=== PATIENT | female | born 1950 | race American Indian/Alaskan Native ===

== ENCOUNTER 2020-12-12 20:55 | Inpatient (IN) ==
[2020-12-12] MEDS ORDERED: ACETAMINOPHEN 1,000 MG/100 ML BAG IV ONE (21:20)
[2020-12-12] MEDS ORDERED: ONDANSETRON 4 MG/2 ML VIAL IV ONE (21:20)
[2020-12-12] MEDS ORDERED: 0.9 % SODIUM CHLORIDE 1,000 ML IV ONE (21:20)
[2020-12-12 22:23] LABS: Appearance,Urine HAZY (Clear); Bilirubin,Urine Negative (Negative); Color,Urine YELLOW; Culture Indicated,Urine No; Glucose,Urine (UA) Negative (Negative); Ketones,Urine Negative (Negative); Leukocyte Esterase,Urine Negative /ug (Negative); Nitrate,Urine Negative (Negative); Protein,Urine Negative (Negative); Specific Gravity,Urine 1.011 (1.000-1.035); Urine Blood Negative (Negative); Urobilinogen,Urine Negative
[2020-12-12 22:23] LABS: Basophils # (Auto) 0.04 K/mcL (0.00-0.20); Basophils % (Auto) 0.3 % (0.0-2.0); Eosinophils # (Auto) 0.16 K/mcL (0.00-0.70); Eosinophils % (Auto) 1.3 % (0.0-7.0); Hemoglobin 11.8 g/dL (12.0-15.0); Lymphocytes # (Auto) 2.94 K/mcL (1.50-4.80); Lymphocytes % (Auto) 24.5 % (15.0-49.0); Mean Cell Volume 92.3 fL (80.0-100.0); Mean Corpuscular HGB Conc 33.7 g/dL (31.0-36.0); Mean Platelet Volume 9.2 fL (7.4-10.4); Monocytes # (Auto) 1.81 K/mcL (0.10-0.90); Monocytes % (Auto) 15.1 % (1.0-12.0); Neutrophils % (Auto) 58.8 % (38.0-78.0); Platelet Count 268 K/mcL (140-440); RBC 3.79 M/mcL (4.00-5.20); Red Cell Distribution Width 14.4 % (11.5-14.5)
[2020-12-12 22:34] LABS: ALT/SGPT 11 U/L (<40); AST/SGOT 24 U/L (<32); Albumin/Globulin Ratio 1.5 (1.0-2.3); Alkaline Phosphatase 58 U/L (39-117); Bilirubin,Total 0.2 mg/dL (0.1-1.0); Blood Urea Nitrogen 38 mg/dL (8-23); Calcium 8.6 mg/dL (8.6-10.4); Carbon Dioxide 23 mmol/L (22-30); Chloride 88 mmol/L (96-108); Globulin 2.6 gm/dL (2.2-3.7); Glomerular Filtration Rate 21; Glucose 102 mg/dL (70-105)
--- NOTE | 2020-12-12 22:59 | Emergency Department Note ---
HPI General Chief complaint: Weakness Stated complaint: Weakness, Aches and Pains Time Seen by Provider: 12/12/20 21:11 Source: patient Mode of arrival: ambulatory Limitations: no limitations History of Present Illness HPI Narrative: Narrative: Patient is a 70-year-old female who presented with chief complaint of not feeling well. Patient states over the past several days she been having slowly worsening body aches, fatigue, and weakness. She admits to not be eating or drinking much recently. She otherwise denies no significant symptoms such as fever, headache, cough, shortness of breath, chest pain, nausea , vomiting, abdominal pain, changes in bowel movements. She has noted some decreased urinary output. Related Data Home Medications Medication Instructions Recorded Confirmed amlodipine 5 mg tablet 5 mg PO QDAY 11/30/17 12/12/20 citalopram 10 mg tablet 10 mg PO QDAY 11/30/17 12/12/20 gabapentin 300 mg capsule 300 mg PO BID cap 11/30/17 12/12/20 losartan 50 mg tablet 50 mg PO QDAY 11/30/17 12/12/20 mesalamine 800 mg tablet,delayed 800 mg PO TID tab 11/30/17 12/12/20 release metoprolol tartrate 25 mg tablet 12.5 mg PO BID tab 11/30/17 12/12/20 pantoprazole 40 mg tablet,delayed 40 mg PO BID tab 11/30/17 12/12/20 release Previous Rx's Medication Instructions Recorded denosumab 60 mg/mL subcutaneous 60 mg SUBCUT [id number] #1 ml 08/26/20 syringe adalimumab 40 mg/0.4 mL 40 mg SUBCUT Q14D #2 ea 12/10/20 subcutaneous pen kit prednisone 5 mg tablet 5 mg PO QDAY #90 tab 12/11/20 tramadol 50 mg tablet 50 mg PO TID PRN #84 tab 12/11/20 Allergies Allergy/AdvReac Type Severity Reaction Status Date / Time Diclofenac Allergy Mild Rash Verified 12/12/20 21:08 Review of Systems ROS ROS Narrative: Narrative: All systems ED: reviewed and negative except as stated. [facility] Narrative Patient History Narrative: Narrative: Medical/Surgical/Family History All Active Problems ROXI positive (Acute) Knee pain, right (Chronic) Tinea corporis (Chronic) Hip pain, left (Chronic) Shoulder pain, left (Chronic) High risk medication use (Chronic) Myalgia (Chronic) Rheumatoid arthritis (Acute) Vitamin D deficiency (Chronic) Tooth abscess (Chronic) Rash and other nonspecific skin eruption (Chronic) Pneumonia (Chronic) Bronchitis (Chronic) Bloody vomitus (Chronic) Blood in stool (Chronic) Stomach ulcer (Chronic) Knee fracture, right (Chronic) Fracture (Chronic) GI (gastrointestinal bleed) (Chronic ~2018) Tobacco use (Chronic) Anxiety (Chronic) Depression (Chronic) Encounter for long-term (current) use of high-risk medication (Acute) Polyarthralgia (Acute) Osteoarthritis (Acute) penitentiary (current) use of systemic steroids (Acute) Encounter for long-term use of opiate analgesic (Acute) Osteoporosis (Acute) SON (acute kidney injury) (Acute) Acute dehydration (Acute) Medical History ROXI positive Anxiety Blood in stool Bloody vomitus Bronchitis 2018 Hospitalized Depression Encounter for long-term (current) use of high-risk medication Fracture Left FA fracture GI (gastrointestinal bleed) (~2018) High risk medication use Hip pain, left Knee fracture, right Knee pain, right 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 Myalgia Osteoarthritis Osteoporosis Pneumonia 2014 x3 2018-Hospitalized Polyarthralgia Rash and other nonspecific skin eruption Rheumatoid arthritis Shoulder pain, left Stomach ulcer Tinea corporis Tobacco use Tooth abscess Vitamin D deficiency Surgical History H/O right knee surgery H/O shoulder surgery Left rotator cuff repair History of cholecystectomy History of surgery 2018 Repaired ulcers-14 ulcers repaired over 3 surgeries Family History Other No pertinent family history Social History Smoking Status: Current every day smoker Alcohol Intake Frequency: does not drink Substance Use: does not use Exam Narrative Narrative: Narrative: Patient is a 70-year-old female laying in bed, talking normally and appropriately. She does not appear to be in acute discomfort or distress, but does appear to feel unwell General Limitations: no limitations Head Head: Present atraumatic and normocephalic Eye Eye: Present normal appearance, PERRL and EOMI; Absent scleral icterus and conjunctival injection ENT ENT: Present normal oropharynx and mucous membranes dry Neck Neck: Present full ROM and trachea midline; Absent tenderness and lymphadenopathy Chest Chest: Present symmetric chest wall rise Respiratory Respiratory: Present normal lung sounds bilaterally; Absent respiratory distress, rales/crackles, wheezes, stridor and accessory muscle use Cardiovascular Cardiovascular: Present regular rate and normal rhythm; Absent systolic murmur and diastolic murmur Adbominal Abdominal: Present soft; Absent tenderness, guarding, rebound, rigidity and mass Extremities Extremities: Absent pedal edema, pretibial edema and calf tenderness Back Back: Absent CVA tenderness (R), CVA tenderness (L) and spinous process tenderness Neurological Neurological: Present alert and oriented X3 Psychiatric Psychiatric: Present normal affect and normal mood Skin Skin: Present warm (WNL) and dry Course Vital Signs Vital signs: Vital Signs Temperature 99.9 F H 12/12/20 20:56 Pulse Rate 82 12/12/20 20:56 Respiratory Rate 20 12/12/20 20:56 Blood Pressure 125/69 12/12/20 20:56 Pulse Oximetry (%) 96 12/12/20 20:56 Temperature 99.9 F H 12/12/20 20:56 Pulse Rate 79 12/12/20 21:31 Respiratory Rate 13 12/12/20 22:46 Blood Pressure 102/75 12/12/20 22:46 Pulse Oximetry (%) 94 12/12/20 21:31 [facility] Narrative Medical decision making narrative: Narrative: Patient is a 70-year-old female who presented with chief complaint of not feeling well. At this time patient's vital signs have been completely stable throughout her stay. She is overall well-appearing outside of some obvious signs of dehydration. Blood work showed a slightly elevated white blood count, but no overt other findings concerning for infectious process on her physical exam or work-up. Urinalysis was unremarkable. Creatinine is significant elevated at 2.3, which is significantly worse than her normal creatinine from a few days ago at 0.8 I do anticipate this is likely secondary to dehydration given her current appearance and history. He was given IV fluids here, and I do feel that admission the hospital for continued monitoring and improvement of her symptoms is appropriate. I discussed case the hospitalist who agrees to the plan of admission at this time Lab Data Result diagrams: 12/12/20 21:29 12/12/20 21:29 Labs: Lab Results 12/12/20 12/12/20 12/12/20 Range/Units 21:29 21:29 21:44 WBC 12.0 H (4.5-11.0) K/mcL RBC 3.79 L (4.00-5.20) M/mcL Hgb 11.8 L (12.0-15.0) g/dL Hct 35.0 L (36.0-48.0) % MCV 92.3 (80.0-100.0) fL MCH 31.1 (26.0-34.0) pg MCHC 33.7 (31.0-36.0) g/dL RDW 14.4 (11.5-14.5) % Plt Count 268 (140-440) K/mcL MPV 9.2 (7.4-10.4) fL Neut % (Auto) 58.8 (38.0-78.0) % Lymph % (Auto) 24.5 (15.0-49.0) % [place] % (Auto) 15.1 H (1.0-12.0) % Eos % (Auto) 1.3 (0.0-7.0) % Baso % (Auto) 0.3 (0.0-2.0) % Lymph # (Auto) 2.94 (1.50-4.80) K/mcL [place] # (Auto) 1.81 H (0.10-0.90) K/mcL Eos # (Auto) 0.16 (0.00-0.70) K/mcL Baso # (Auto) 0.04 (0.00-0.20) K/mcL Absolute Neutrophils 7.03 (1.80-8.00) K/mcL Sodium 124 L (133-145) mmol/L Potassium 3.7 (3.3-5.1) mmol/L Chloride 88 L (96-108) mmol/L Carbon Dioxide 23 (22-30) mmol/L Anion Gap 13.0 (8.0-16.0) BUN 38 H (8-23) mg/dL Creatinine 2.3 H (0.6-1.1) mg/dL GFR Calculation 21 Glucose 102 (70-105) mg/dL Calcium 8.6 (8.6-10.4) mg/dL Total Bilirubin 0.2 (0.1-1.0) mg/dL AST 24 (<32) U/L ALT 11 (<40) U/L Alkaline Phosphatase 58 (39-117) U/L Total Protein 6.6 (5.9-8.4) gm/dL Albumin 4.0 (3.2-5.2) gm/dL Globulin 2.6 (2.2-3.7) gm/dL Albumin/Globulin Ratio 1.5 (1.0-2.3) Urine Color Yellow Urine Appearance Hazy A (Clear) Urine pH 5.0 (5.0-9.0) Ur Specific [place] 1.011 (1.000-1.035) Urine Protein Negative (Negative) mg/dL Urine Glucose (UA) Negative (Negative) mg/dL Urine Ketones Negative (Negative) mg/dL Urine Occult Blood Negative (Negative) mg/dL Urine Nitrate Negative (Negative) Urine Bilirubin Negative (Negative) mg/dL Urine Urobilinogen Negative mg/dL Ur Leukocyte Esterase Negative (Negative) /ug Ur Culture Indicated? No ED POC Tests ED POC Tests: YASMIN - Influenza A Negative YASMIN - Influenza B Negative YASMIN - SARS Antigen Negative Discharge Plan Patient/Caregiver Discharge Instructions Pt seen by ACUTE CARE NURSING ASSISTANT/PA only: No Clinical Impression: SON (acute kidney injury), Acute dehydration Patient Disposition: Xfer As Inpt ([facility]) Follow up with: Paul Ricks MD [Primary Care Provider] - Prescriptions: No Action prednisone 5 mg tablet 5 mg PO QDAY Qty: 90 RF: 0 tramadol 50 mg tablet 50 mg PO TID PRN (Reason: pain) Qty: 84 RF: 0 mesalamine [Asacol HD] 800 mg tablet,delayed release (DR/EC) 800 mg PO TID RF: 0 metoprolol tartrate 25 mg tablet 12.5 mg PO BID RF: 0 amlodipine 5 mg tablet 5 mg PO QDAY RF: 0 pantoprazole 40 mg tablet,delayed release (DR/EC) 40 mg PO BID RF: 0 gabapentin 300 mg capsule 300 mg PO BID RF: 0 losartan 50 mg tablet 50 mg PO QDAY RF: 0 citalopram 10 mg tablet 10 mg PO QDAY RF: 0 Prolia 60 mg/mL syringe 60 mg subcut [id number] Qty: 1 RF: 1 Humira(CF) Pen 40 mg/0.4 mL pen injector kit 40 mg subcut Q14D Qty: 2 RF: 2
[2020-12-13] MEDS ORDERED: ACETAMINOPHEN 325 MG TABLET PO PRN (01:57)
[2020-12-13] MEDS ORDERED: ONDANSETRON 4 MG/2 ML VIAL IV PRN ×2 (01:57→11:22)
[2020-12-13] MEDS ORDERED: 0.9 % SODIUM CHLORIDE 1,000 ML IV SCH ×2 (02:00→11:30)
--- NOTE | 2020-12-13 04:55 | XRay Report ---
CLINICAL INFORMATION: fatigue COMPARISON: 03/09/2018 FINDINGS: The heart and is mildly enlarged - increased. Mediastinum is unremarkable. Pulmonary vessels show slight upper lobe redistribution. No definite edema. Moderate right and small left basilar infiltrates have developed. IMPRESSION: Moderate patchy right basilar and small patchy left basilar infiltrates. Mild superimposed CHF or volume overload Severe left glenohumeral degeneration. 6 mm calcification overlying the surgical neck may represent loose body Interpreted and Authenticated by: Roly El 12/13/20
--- NOTE | 2020-12-13 05:46 | Cat Scan Report ---
CLINICAL INFORMATION: Weakness COMPARISON: 10/28/2005. TECHNIQUE: 2.5 mm helical slices were obtained in the skull base to vertex. Following reconstruction, axial reformatted images were reviewed at bone and parenchymal windows. The exam was performed using radiation dose optimization techniques including, but not limited to, automated exposure control, adjustment of the mA and/or kV according to patient size and use of iterative reconstruction technique. FINDINGS: The ventricles, sulci, fissures, and cisterns are mildly enlarged compatible mild age-related atrophy. There is asymmetric atrophy in the frontal temporal region. No extra-axial fluid collections are identified. Mild patchy chronic ischemic changes in the deep cerebral white matter has progressed modestly. There is no evidence of hemorrhage, mass effect, or edema. Bone windows show no significant osseous abnormality. IMPRESSION: Asymmetric frontotemporal atrophy and patchy chronic ischemic changes in the deep cerebral white matter. Patient may be at risk for frontotemporal dementia. Modest progression since the 2005 Mild anterior subluxation both TMJs with degeneration Interpreted and Authenticated by: Roly El 12/13/20
[2020-12-13] MEDS ORDERED: 0.9 % SODIUM CHLORIDE 10 ML SYRINGE IV SCH (06:00)
[2020-12-13 08:42] LABS: Basophils # (Auto) 0.04 K/mcL (0.00-0.20); Basophils % (Auto) 0.4 % (0.0-2.0); Eosinophils # (Auto) 0.14 K/mcL (0.00-0.70); Eosinophils % (Auto) 1.4 % (0.0-7.0); Hematocrit 36.8 % (36.0-48.0); Hemoglobin 12.1 g/dL (12.0-15.0); Lymphocytes # (Auto) 2.16 K/mcL (1.50-4.80); Lymphocytes % (Auto) 21.4 % (15.0-49.0); Mean Cell Volume 95.3 fL (80.0-100.0); Mean Corpuscular HGB Conc 32.9 g/dL (31.0-36.0); Mean Platelet Volume 9.4 fL (7.4-10.4); Monocytes # (Auto) 1.37 K/mcL (0.10-0.90); Monocytes % (Auto) 13.6 % (1.0-12.0); Neutrophils % (Auto) 63.2 % (38.0-78.0); Platelet Count 269 K/mcL (140-440); RBC 3.86 M/mcL (4.00-5.20); Red Cell Distribution Width 14.6 % (11.5-14.5); WBC 10.1 K/mcL (4.5-11.0)
[2020-12-13 08:54] LABS: ALT/SGPT 10 U/L (<40); AST/SGOT 22 U/L (<32); Albumin 3.7 gm/dL (3.2-5.2); Albumin/Globulin Ratio 1.5 (1.0-2.3); Alkaline Phosphatase 56 U/L (39-117); Bilirubin,Total 0.4 mg/dL (0.1-1.0); Blood Urea Nitrogen 30 mg/dL (8-23); Calcium 9.2 mg/dL (8.6-10.4); Carbon Dioxide 21 mmol/L (22-30); Chloride 102 mmol/L (96-108); Globulin 2.5 gm/dL (2.2-3.7); Glomerular Filtration Rate 41; Glucose 102 mg/dL (70-105)
--- NOTE | 2020-12-13 11:18 | Internal Med History&Physical ---
HPI History of Present Illness Patient information: Note initiated : 12/13/20 at 11:09 am Service Date, if different from initiated Date: [] Patient: Marjorie Leblanc 70 y/o F admitted on for Weakness, Aches and Pains. Chief Complaint: [] History of present illness: Ms. Leblanc is a 70 year old F who says she has not eaten anything for the past couple days and was weak. No recent illnesses. She cannot say why she stopped eating other than a sounds like she just did not have an appetite. She feels tired but does not have any nausea vomiting diarrhea. I wonder if this could be related to the heat wave or having. She was at [facility] in June for acute kidney injury and diarrhea felt to be gastroenteritis. Review of Systems: Pertinent positives above. Denies headache/fever/chills/nausea/vomiting/chest or abdominal pain/cough/dyspnea/diarrhea. Main 10 point review of system reviewed negative PFSH PFSH All Active Problems ROXI positive (Acute) Knee pain, right (Chronic) Tinea corporis (Chronic) Hip pain, left (Chronic) Shoulder pain, left (Chronic) High risk medication use (Chronic) Myalgia (Chronic) Rheumatoid arthritis (Acute) Vitamin D deficiency (Chronic) Tooth abscess (Chronic) Rash and other nonspecific skin eruption (Chronic) Pneumonia (Chronic) Bronchitis (Chronic) Bloody vomitus (Chronic) Blood in stool (Chronic) Stomach ulcer (Chronic) Knee fracture, right (Chronic) Fracture (Chronic) GI (gastrointestinal bleed) (Chronic ~2018) Tobacco use (Chronic) Anxiety (Chronic) Depression (Chronic) Encounter for long-term (current) use of high-risk medication (Acute) Polyarthralgia (Acute) 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 (Acute) Encounter for long-term use of opiate analgesic (Acute) Osteoporosis (Acute) SON (acute kidney injury) (Acute) Acute dehydration (Acute) Medical History ROXI positive Anxiety Blood in stool Bloody vomitus Bronchitis 2018 Hospitalized Depression Encounter for long-term (current) use of high-risk medication Fracture Left FA fracture GI (gastrointestinal bleed) (~2018) High risk medication use Hip pain, left Knee fracture, right Knee pain, right 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 Myalgia Osteoarthritis Osteoporosis Pneumonia 2014 x3 2018-Hospitalized Polyarthralgia Rash and other nonspecific skin eruption Rheumatoid arthritis Shoulder pain, left Stomach ulcer Tinea corporis Tobacco use Tooth abscess Vitamin D deficiency Surgical History H/O right knee surgery H/O shoulder surgery Left rotator cuff repair History of cholecystectomy History of surgery 2018 Repaired ulcers-14 ulcers repaired over 3 surgeries Family History Other No pertinent family history Social History marital status: occupational status: retired physical activity: none alcohol intake frequency: does not drink substance use type: does not use MEDS/ALLERGIES Home Medications and Allergies Home Medications Medication Instructions Recorded Confirmed Type amlodipine 5 mg tablet 5 mg PO QDAY 11/30/17 12/12/20 History citalopram 10 mg tablet 10 mg PO QDAY 11/30/17 12/12/20 History gabapentin 300 mg capsule 300 mg PO BID cap 11/30/17 12/12/20 History losartan 50 mg tablet 50 mg PO QDAY 11/30/17 12/12/20 History mesalamine 800 mg tablet,delayed 800 mg PO TID tab 11/30/17 12/12/20 History release metoprolol tartrate 25 mg tablet 12.5 mg PO BID tab 11/30/17 12/12/20 History pantoprazole 40 mg tablet,delayed 40 mg PO BID tab 11/30/17 12/12/20 History release denosumab 60 mg/mL subcutaneous 60 mg SUBCUT [id number] #1 ml 08/26/20 12/12/20 Rx syringe adalimumab 40 mg/0.4 mL 40 mg SUBCUT Q14D #2 ea 12/10/20 12/12/20 Rx subcutaneous pen kit prednisone 5 mg tablet 5 mg PO QDAY #90 tab 12/11/20 12/12/20 Rx tramadol 50 mg tablet 50 mg PO TID PRN #84 tab 12/11/20 12/12/20 Rx Allergies Allergy/AdvReac Type Severity Reaction Status Date / Time Diclofenac Allergy Mild Rash Verified 12/12/20 21:08 EXAM Constitutional Vitals: Temp Pulse Resp BP Pulse Ox 99.9 F H 71 17 83/52 99 12/12/20 20:56 12/13/20 09:58 12/13/20 09:58 12/13/20 09:58 12/13/20 09:58 Exam: General: Sleeping but awakens, No acute Distress Eyes/N/T: EOMI, PERRL, dry MM Head/Neck: neck supple, normocephalic atraumatic CV: RRR, 2/6 SM, normal s1/s2 Pulm: Clear b/l, no wheezing/rhonchi/rales Abd: soft, nontender, +BS x4 Ext: no clubbing/cyanosis/edema Neuro: Sleeping but awakens but falls asleep easily. Lethargic but is alert and oriented, no focal deficits, moves all extremities, CN 2-12 grossly intact, symmetrical strength b/l upper/lower, sensations intact b/l upper/lower Skin: warm/dry DATA Data Completed and Pending Labs: Labs from last 24 hours 12/13/20 12/13/20 12/12/20 05:30 05:30 21:44 WBC 10.1 RBC 3.86 L Hgb 12.1 Hct 36.8 MCV 95.3 MCH 31.3 MCHC 32.9 RDW 14.6 H Plt Count 269 MPV 9.4 Neut % (Auto) 63.2 Lymph % (Auto) 21.4 [place] % (Auto) 13.6 H Eos % (Auto) 1.4 Baso % (Auto) 0.4 Lymph # (Auto) 2.16 [place] # (Auto) 1.37 H Eos # (Auto) 0.14 Baso # (Auto) 0.04 Absolute Neutrophils 6.37 Sodium 136 Potassium 4.2 Chloride 102 Carbon Dioxide 21 L Anion Gap 13.0 BUN 30 H Creatinine 1.3 H GFR Calculation 41 Glucose 102 Calcium 9.2 Total Bilirubin 0.4 AST 22 ALT 10 Alkaline Phosphatase 56 Total Protein 6.2 Albumin 3.7 Globulin 2.5 Albumin/Globulin Ratio 1.5 Urine Color Yellow Urine Appearance Hazy A Urine pH 5.0 Ur Specific [place] 1.011 Urine Protein Negative Urine Glucose (UA) Negative Urine Ketones Negative Urine Occult Blood Negative Urine Nitrate Negative Urine Bilirubin Negative Urine Urobilinogen Negative Ur Leukocyte Esterase Negative Ur Culture Indicated? No 12/12/20 12/12/20 21:29 21:29 WBC 12.0 H RBC 3.79 L Hgb 11.8 L Hct 35.0 L MCV 92.3 MCH 31.1 MCHC 33.7 RDW 14.4 Plt Count 268 MPV 9.2 Neut % (Auto) 58.8 Lymph % (Auto) 24.5 [place] % (Auto) 15.1 H Eos % (Auto) 1.3 Baso % (Auto) 0.3 Lymph # (Auto) 2.94 [place] # (Auto) 1.81 H Eos # (Auto) 0.16 Baso # (Auto) 0.04 Absolute Neutrophils 7.03 Sodium 124 L Potassium 3.7 Chloride 88 L Carbon Dioxide 23 Anion Gap 13.0 BUN 38 H Creatinine 2.3 H GFR Calculation 21 Glucose 102 Calcium 8.6 Total Bilirubin 0.2 AST 24 ALT 11 Alkaline Phosphatase 58 Total Protein 6.6 Albumin 4.0 Globulin 2.6 Albumin/Globulin Ratio 1.5 Urine Color Urine Appearance Urine pH Ur Specific [place] Urine Protein Urine Glucose (UA) Urine Ketones Urine Occult Blood Urine Nitrate Urine Bilirubin Urine Urobilinogen Ur Leukocyte Esterase Ur Culture Indicated? A/P Narrative A/P Narrative: A: *SON ok CKD II: Improved with IVF *Volume depletion: *Hypotension in ED: Resolved with IVF *Encephalopathy (lethargy): 2/2 above -CT brain with frontotemporal atrophy, no acute pathology *Generalized weakness/deconditioning *Hyponatremia: Resolved with IVF *h/o UC: Mesalamine and follows with Dr. Park *h/o RA: On prednisone and follows with rheumatology *HTN: *Anxiety/depression: *GERD: P: -IVF -f/u renal fxn -Hold BP meds (norvasc/arb/bb) for low blood pressure and son -Follow-up electrolytes - - -cont prednisone -PT/OT -ppx: Lovenox/home ppi Time Spent With Patient Time: Total time spent is greater than 50% in coordination of care (as documented) at patient's floor/unit and/or counseling patient:
[2020-12-13] MEDS ORDERED: POTASSIUM CHLORIDE 20 MEQ TABLET PO PRN ×2 (11:22)
[2020-12-13] MEDS ORDERED: POLYETHYLENE GLYCOL 3350 17 GM PACKET PO PRN (11:22)
[2020-12-13] MEDS ORDERED: IPRATROPIUM/ALBUTEROL 3 ML AMPUL.NEB NEB PRN (11:22)
[2020-12-13] MEDS ORDERED: MAGNESIUM SULFATE 2 GM/50 ML BAG IV PRN (11:22)
[2020-12-13] MEDS ORDERED: SENNOSIDES 1 TABLET PO PRN (11:22)
[2020-12-13] MEDS ORDERED: POTASSIUM CHLORIDE 40 MEQ in DEXTROSE 5% IN WATER 500 ML IV PRN (11:22)
[2020-12-13 12:07] LABS: C-Reactive Protein 2.8 mg/dL (0.03-0.80); Thyroid Stimulating Hormone 0.54 uIU/mL (0.27-5.01)
[2020-12-13] MEDS: 0.9 % SODIUM CHLORIDE 10 ML SYRINGE IV SCH ×2 (13:57→21:15)
[2020-12-13] MEDS: predniSONE 5 MG TABLET PO SCH (13:57)
[2020-12-13] MEDS: MESALAMINE 800 MG PO SCH ×2 (14:03→21:15)
[2020-12-13] MEDS: PANTOPRAZOLE 40 MG TABLET PO SCH (17:18)
[2020-12-13] MEDS: ACETAMINOPHEN 325 MG TABLET PO PRN (17:18)
--- NOTE | 2020-12-13 18:48 | EKG ---
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 Measurements Intervals [place] Rate: 82 P: 64 IN: 133 QRS: 98 QRSD: 84 T: 54 QT: 353 QTc: 413 Interpretive Statements Sinus rhythm Right axis deviation NO PRIOR TRACING FOR COMPARISON OTHERWISE NORMAL TRACING Electronically Signed On 12-13-2020 18:48:40 PDT by Erich Saldana M.D. /store/M0/[id number]
[2020-12-13] MEDS: traMADol 50 MG TABLET PO PRN (21:14)
[2020-12-13] MEDS: DOCUSATE SODIUM 100 MG CAPSULE PO SCH (21:15)
[2020-12-13] MEDS: GABAPENTIN 300 MG CAPSULE PO SCH (21:15)
[2020-12-14] MEDS: 0.9 % SODIUM CHLORIDE 10 ML SYRINGE IV SCH ×4 (05:54→21:00)
--- NOTE | 2020-12-14 06:47 | XRay Report ---
CLINICAL INFORMATION: f/u infiltrate, atypical pna vs chf COMPARISON: 12/12/2020 portable film. Two-view chest x-ray 03/09/2018 FINDINGS: The heart is decreased now only borderline enlarged. Mediastinum is normal. The pulmonary vasculature are normal caliber. No edema. There has been complete interval resolution of left basilar infiltrate. Near-complete resolution right basilar infiltrate with minimal residual. Small bilateral pleural effusions persist IMPRESSION: Complete resolution of CHF. Complete resolution left basilar infiltrate. Minor residual infiltrate right base Small persistent bilateral pleural effusions. Mild L2 and moderate L3 and L4 compression fractures - chronic Interpreted and Authenticated by: Roly El 12/14/20
[2020-12-14 07:13] LABS: ALT/SGPT 9 U/L (<40); AST/SGOT 20 U/L (<32); Albumin 3.7 gm/dL (3.2-5.2); Albumin/Globulin Ratio 1.3 (1.0-2.3); Alkaline Phosphatase 54 U/L (39-117); Bilirubin,Direct < 0.2 mg/dL (0-0.3); Bilirubin,Total 0.4 mg/dL (0.1-1.0); Blood Urea Nitrogen 18 mg/dL (8-23); Calcium 8.9 mg/dL (8.6-10.4); Carbon Dioxide 20 mmol/L (22-30); Chloride 110 mmol/L (96-108); Globulin 2.8 gm/dL (2.2-3.7); Glomerular Filtration Rate 87; Glucose 126 mg/dL (70-105); Lactate Dehydrogenase 179 U/L (135-225); Phosphorous 2.7 mg/dL (2.5-4.5); Triglycerides 112 mg/dL (<150); Uric Acid 6.5 mg/dL (2.5-8.0)
[2020-12-14 07:53] LABS: Hematocrit 36.4 % (36.0-48.0); Hemoglobin 11.7 g/dL (12.0-15.0); Mean Cell Volume 96.8 fL (80.0-100.0); Mean Corpuscular HGB Conc 32.1 g/dL (31.0-36.0); Mean Platelet Volume 9.4 fL (7.4-10.4); Platelet Count 243 K/mcL (140-440); RBC 3.76 M/mcL (4.00-5.20); Red Cell Distribution Width 14.9 % (11.5-14.5); WBC 6.8 K/mcL (4.5-11.0)
[2020-12-14] MEDS ORDERED: predniSONE 5 MG TABLET PO SCH (08:00)
[2020-12-14 08:15] LABS: Eosinophils % (Manual) 3 % (0-7); Lymphocytes % 20 % (15-49); Monocytes % (Manual) 13 % (1-12); Platelet Estimate NORMAL (Normal); RBC Morphology NORMAL (Normal); Segmented Neutrophils % 64 % (38-78)
--- NOTE | 2020-12-14 08:27 | Internal Med Progress Note ---
SUBJECTIVE Subjective Patient information: Note initiated : 12/14/20 at 8:23 am Service Date, if different from initiated Date: [] Patient: Marjorie Leblanc 70 y/o F admitted on 12/13/20 for Weakness, Aches and Pains. Chief Complaint: [] Interval history: History of present illness: Ms. Leblanc is a 70 year old F who says she has not eaten anything for the past couple days and was weak. No recent illnesses. She cannot say why she stopped eating other than a sounds like she just did not have an appetite. She feels tired but does not have any nausea vomiting diarrhea. I wonder if this could be related to the heat wave or having. She was at [facility] in June for acute kidney injury and diarrhea felt to be gastroenteritis. 12/14 Patient doing well and feeling much better. Mentation clear. Review of Systems: denies headache/fever/chills/nausea/vomiting/chest or abdominal pain/cough/dyspnea/diarrhea. Otherwise see above. Constitutional Vitals: Vital Signs Temp Pulse Resp BP Pulse Ox 98.1 F 72 18 100/61 97 12/14/20 07:13 12/14/20 07:13 12/14/20 07:13 12/14/20 07:13 12/14/20 07:13 Period Temp Pulse Resp BP Sys/Beltran Pulse Ox Last 24 Hr 98.1 F-100.6 F 70-94 15- 83-139/52-80 93-100 Intake and Output 12/13/20 12/14/20 12/14/20 21:59 05:59 13:59 Intake Total 150 2100 Output Total 300 1301 50 Balance -150 799 -50 Weight 69.4 kg Intake & Output: Intake & Output 12/13/20 12/14/20 12/14/20 21:59 05:59 13:59 Intake Total 150 2100 Output Total 300 1301 50 Balance -150 799 -50 Weight 69.4 kg Intake: IV 1000 Sodium Chloride 0.9% 1,000 ml @ 1000 75 mls/hr IV .[id number] KAILEE Rx#: [id number] Oral 150 1100 Output: Void Amount 300 1300 50 # of times incontinent of urine 1 Other: Meal Lunch Percent of Meal Consumed 50% Feeding Ability Independent Urine Appearance Clear Clear Clear Urine Color Bright Yellow Bright Yellow Bright Yellow Urine Odor Normal Normal Exam: General: Awake and alert , No acute Distress Eyes/N/T: EOMI, Head/Neck: neck supple, CV: RRR, 2/6 SM, Pulm: Clear b/l, no wheezing/rhonchi/rales Abd: soft, nontender, +BS x4 Ext: no clubbing/cyanosis/edema Neuro: Alert, mentation clear. Follows commands moves all extremities answers questions appropriately skin: warm/dry OBJ DATA Labs CBC & Chem 7: 12/14/20 05:05 12/14/20 05:05 Labs: Abnormal Lab Results 12/14/20 12/14/20 12/13/20 05:05 05:05 05:30 WBC RBC 3.76 L Hgb 11.7 L Hct RDW 14.9 H [place] % (Auto) [place] # (Auto) Monocytes % (Manual) 13 H Sodium Chloride 110 H Carbon Dioxide 20 L BUN Creatinine Glucose 126 H C-Reactive Protein 2.80 H Urine Appearance 12/13/20 12/13/20 12/12/20 05:30 05:30 21:44 WBC RBC 3.86 L Hgb Hct RDW 14.6 H [place] % (Auto) 13.6 H [place] # (Auto) 1.37 H Monocytes % (Manual) Sodium Chloride Carbon Dioxide 21 L BUN 30 H Creatinine 1.3 H Glucose C-Reactive Protein Urine Appearance Hazy A 12/12/20 12/12/20 21:29 21:29 WBC 12.0 H RBC 3.79 L Hgb 11.8 L Hct 35.0 L RDW [place] % (Auto) 15.1 H [place] # (Auto) 1.81 H Monocytes % (Manual) Sodium 124 L Chloride 88 L Carbon Dioxide BUN 38 H Creatinine 2.3 H Glucose C-Reactive Protein Urine Appearance Meds: Medications Acetaminophen (Acetaminophen 325 Mg Tablet) 650 mg PO Q6HP PRN PRN Reason: PAIN/FEVER > 101 Last Admin: 12/13/20 17:18 Dose: 650 mg Documented by: Albuterol/Ipratropium (Ipratropium/Albuterol 3 Ml Ampul.Neb) 3 ml NEB Q4HP PRN PRN Reason: Shortness Of Breath Citalopram Hydrobromide (Citalopram 20 Mg Tablet) 10 mg PO DAILY KAILEE Docusate Sodium (Docusate Sodium 100 Mg Capsule) 100 mg PO BID [facility] Last Admin: 12/13/20 21:15 Dose: 100 mg Documented by: Gabapentin (Gabapentin 300 Mg Capsule) 300 mg PO BID [facility] Last Admin: 12/13/20 21:15 Dose: 300 mg Documented by: Potassium Chloride 40 meq/ (Dextrose) 520 mls @ 130 mls/hr IV UD PRN PRN Reason: Potassium < 3 Magnesium Sulfate (Magnesium Sulfate) 2 gm in 50 mls @ 50 mls/hr IV UD PRN PRN Reason: Magnesium </= 1.6 Ondansetron HCl (Ondansetron 4 Mg/2 Ml Vial) 4 mg IV Q4HP PRN PRN Reason: Nausea And Vomiting Pantoprazole Sodium (Pantoprazole 40 Mg Tablet) 40 mg PO BIDAC [facility] Last Admin: 12/13/20 17:18 Dose: 40 mg Documented by: Mesalamine [Asacol (Hd] [address] Tablet) 1 dose PO TID [facility] Last Admin: 12/13/20 21:15 Dose: Not Given Documented by: Polyethylene Glycol (Polyethylene Glycol 3350 17 Gm Packet) 17 gm PO DAILYP PRN PRN Reason: Constipation Potassium Chloride (Potassium Chloride 20 Meq Tablet) 40 meq PO UD PRN PRN Reason: Potssium is 3-3.5 Potassium Chloride (Potassium Chloride 20 Meq Tablet) 40 meq PO UD PRN PRN Reason: Potassium < 3 Prednisone (Prednisone 5 Mg Tablet) 5 mg PO QAC [facility] Last Admin: 12/13/20 13:57 Dose: 5 mg Documented by: Senna (Sennosides 1 Tablet) 2 tab PO DAILYP PRN PRN Reason: Constipation Sodium Chloride (0.9 % Sodium Chloride 10 Ml Syringe) 10 ml IV Q8 [facility] Last Admin: 12/14/20 05:54 Dose: 10 ml Documented by: Tramadol HCl (Tramadol 50 Mg Tablet) 50 mg PO TIDP PRN; Protocol PRN Reason: pain Last Admin: 12/13/20 21:14 Dose: 50 mg Documented by: A/P Narrative A/P Narrative: A: *SON ok CKD II: resolved with IVF *Volume depletion: improved *Hypotension in ED: Resolved with IVF *Encephalopathy (lethargy): 2/2 above. resolved -CT brain with frontotemporal atrophy, no acute pathology *Generalized weakness/deconditioning *Hyponatremia: Resolved with IVF *h/o UC: Mesalamine and follows with Dr. Park *h/o RA: On prednisone and follows with rheumatology *HTN: *Anxiety/depression: *GERD: P: -s/p IVF -f/u renal fxn -Hold BP meds (norvasc/arb/bb) for low blood pressure and son, monitor today and will likely not restart all back -Follow-up electrolytes -cont prednisone -PT/OT -ppx: Lovenox/home ppi Time Spent With Patient Time: Total time spent is greater than 50% in coordination of care (as document ed) at patient's floor/unit and/or counseling patient: [facility] Deep Vein Thrombosis/Pulmonary Embolism Present on Admission: No
[2020-12-14] MEDS: CITALOPRAM 20 MG TABLET PO SCH (08:35)
[2020-12-14] MEDS: predniSONE 5 MG TABLET PO SCH (08:35)
[2020-12-14] MEDS: PANTOPRAZOLE 40 MG TABLET PO SCH ×2 (08:35→16:16)
[2020-12-14] MEDS: traMADol 50 MG TABLET PO PRN ×2 (08:36→19:45)
[2020-12-14] MEDS: MESALAMINE 800 MG PO SCH ×3 (08:36→19:47)
[2020-12-14] MEDS: DOCUSATE SODIUM 100 MG CAPSULE PO SCH ×2 (08:36→19:45)
[2020-12-14] MEDS: GABAPENTIN 300 MG CAPSULE PO SCH ×2 (08:36→19:45)
--- NOTE | 2020-12-14 11:45 | Discharge Summary ---
Discharge Provider Provider Patient information: Note initiated : 12/14/20 at 11:43 am Service Date, if different from initiated Date: [] Patient: Marjorie Leblanc 70 y/o F admitted on 12/13/20 for Weakness, Aches and Pains. Chief Complaint: [] Date of admission: 12/13/20 12:57 Discharge date: 12/15/20 Primary care physician: Paul Ricks Consults: 12/13/20 Consult to Physician [CONS] Stat Comment: Consulting Provider: Marcos Waite Reason For Exam: Physician to Consult Discharge Meds Discharge Medications Home Medications citalopram 10 mg tablet 10 mg PO QDAY 11/30/17 [History Confirmed 12/12/20 Last Taken Unknown] gabapentin 300 mg capsule 300 mg PO BID cap 11/30/17 [History Confirmed 12/12/20 Last Taken Unknown] mesalamine 800 mg tablet,delayed release 800 mg PO TID tab 11/30/17 [History Confirmed 12/12/20 Last Taken Unknown] metoprolol tartrate 25 mg tablet 12.5 mg PO BID tab 11/30/17 [History Confirmed 12/12/20 Last Taken Unknown] pantoprazole 40 mg tablet,delayed release 40 mg PO BID tab 11/30/17 [History Confirmed 12/12/20 Last Taken Unknown] denosumab 60 mg/mL subcutaneous syringe 60 mg SUBCUT [id number] #1 ml 08/26/20 [Rx Confirmed 12/12/20 Last Taken Unknown] adalimumab 40 mg/0.4 mL subcutaneous pen kit 40 mg SUBCUT Q14D #2 ea 12/10/20 [Rx Confirmed 12/12/20 Last Taken Unknown] prednisone 5 mg tablet 5 mg PO QDAY #90 tab 12/11/20 [Rx Confirmed 12/12/20 Last Taken Unknown] tramadol 50 mg tablet 50 mg PO TID PRN #84 tab 12/11/20 [Rx Confirmed 12/12/20 Last Taken Unknown] COURSE Hospital Course Hospital course: Interval history: History of present illness: Ms. Leblanc is a 70 year old F who says she has not eaten anything for the past couple days and was weak. No recent illnesses. She cannot say why she stopped eating other than a sounds like she just did not have an appetite. She feels tired but does not have any nausea vomiting diarrhea. I wonder if this could be related to the heat wave or having. She was at [facility] in June for acute kidney injury and diarrhea felt to be gastroenteritis. 12/14 Patient doing well and feeling much better. Mentation clear. 12/15 Patient doing well. No overnight event or new complaints. A: *SON ok CKD II: resolved with IVF *Volume depletion: improved *Hypotension in ED: Resolved with IVF *Encephalopathy (lethargy): 2/2 above. resolved -CT brain with frontotemporal atrophy, no acute pathology *Generalized weakness/deconditioning *Hyponatremia: Resolved with IVF *h/o UC: Mesalamine and follows with Dr. Park *h/o RA: On prednisone and follows with rheumatology *HTN: *Anxiety/depression: *GERD: Discharge diagnosis: Acute kidney injury volume depletion encephalopathy generalized weakness de Secondary discharge diagnosis: History of ulcer colitis rheumatoid iritis hypertension anxiety depression Time Spent with Patient Time attestation: Total time spent providing and/or coordinating discharge services: Time spent: Greater than 30 minutes EXAM Constitutional Vitals: Temp Pulse Resp BP Pulse Ox 98.1 F 72 18 100/61 97 12/14/20 07:13 12/14/20 07:13 12/14/20 07:13 12/14/20 07:13 12/14/20 09:20 Discharge Data Data Completed and Pending Labs on day of discharge: Labs from last 24 hours 12/14/20 12/14/20 12/13/20 05:05 05:05 05:30 WBC 6.8 RBC 3.76 L Hgb 11.7 L Hct 36.4 MCV 96.8 MCH 31.1 MCHC 32.1 RDW 14.9 H Plt Count 243 MPV 9.4 Seg Neutrophils % 64 Lymphocytes % 20 Monocytes % (Manual) 13 H Eosinophils % (Manual) 3 Platelet Estimate Normal RBC Morphology Normal Sodium 142 Potassium 4.0 Chloride 110 H Carbon Dioxide 20 L Anion Gap 12.0 BUN 18 Creatinine 0.7 GFR Calculation 87 Glucose 126 H Uric Acid 6.5 Calcium 8.9 Phosphorus 2.7 Magnesium 1.7 Total Bilirubin 0.4 Direct Bilirubin < 0.2 GGT 22 AST 20 ALT 9 Alkaline Phosphatase 54 Lactate Dehydrogenase 179 C-Reactive Protein Total Protein 6.5 Albumin 3.7 Globulin 2.8 Albumin/Globulin Ratio 1.3 Triglycerides 112 Procalcitonin TSH Mycoplasma pneumon IgG Pending Mycoplasma pneumon IgM Pending Ur Strep pneumoniae Ag 12/13/20 12/13/20 12/12/20 05:30 05:30 21:44 WBC RBC Hgb Hct MCV MCH MCHC RDW Plt Count MPV Seg Neutrophils % Lymphocytes % Monocytes % (Manual) Eosinophils % (Manual) Platelet Estimate RBC Morphology Sodium Potassium Chloride Carbon Dioxide Anion Gap BUN Creatinine GFR Calculation Glucose Uric Acid Calcium Phosphorus Magnesium 1.8 Total Bilirubin Direct Bilirubin GGT AST ALT Alkaline Phosphatase Lactate Dehydrogenase C-Reactive Protein 2.80 H Total Protein Albumin Globulin Albumin/Globulin Ratio Triglycerides Procalcitonin 0.09 TSH 0.54 Mycoplasma pneumon IgG Mycoplasma pneumon IgM Ur Strep pneumoniae Ag Negative Discharge Plan Patient/Caregiver Discharge Instructions Activity: increase activity as tolerated Diet: Regular Diet Activity Restrictions/Additional Instructions: Monitor blood pressure twice daily and if systolic blood pressure consistently above 140 then restart your amlodipine. Bring log of blood pressure readings to PCP. Prescriptions: Continued prednisone 5 mg tablet 5 mg PO QDAY Qty: 90 RF: 0 tramadol 50 mg tablet 50 mg PO TID PRN (Reason: pain) Qty: 84 RF: 0 mesalamine [Asacol HD] 800 mg tablet,delayed release (DR/EC) 800 mg PO TID RF: 0 metoprolol tartrate 25 mg tablet 12.5 mg PO BID RF: 0 pantoprazole 40 mg tablet,delayed release (DR/EC) 40 mg PO BID RF: 0 gabapentin 300 mg capsule 300 mg PO BID RF: 0 citalopram 10 mg tablet 10 mg PO QDAY RF: 0 Prolia 60 mg/mL syringe 60 mg subcut [id number] Qty: 1 RF: 1 Humira(CF) Pen 40 mg/0.4 mL pen injector kit 40 mg subcut Q14D Qty: 2 RF: 2 Discontinued amlodipine 5 mg tablet 5 mg PO QDAY RF: 0 losartan 50 mg tablet 50 mg PO QDAY RF: 0 Follow Up Plan Follow up with: Paul Ricks MD [Primary Care Provider] - Patient Disposition: Home, Self-Care Prognosis: Fair Overall status at discharge: patient is progressing back to baseline Discharge Orders: Discharge Order (Routine); Ordered 12/15/20 Ordered By: Marcos Waite [facility] Deep Vein Thrombosis/Pulmonary Embolism Present on Admission: No
[2020-12-14] MEDS: ACETAMINOPHEN 325 MG TABLET PO PRN (13:16)
[2020-12-15] MEDS: ACETAMINOPHEN 325 MG TABLET PO PRN (00:09)
[2020-12-15] MEDS: 0.9 % SODIUM CHLORIDE 10 ML SYRINGE IV SCH (06:11)
[2020-12-15] MEDS: MESALAMINE 800 MG PO SCH (07:52)
[2020-12-15] MEDS: DOCUSATE SODIUM 100 MG CAPSULE PO SCH (07:52)
[2020-12-15] MEDS: predniSONE 5 MG TABLET PO SCH (07:53)
[2020-12-15] MEDS: CITALOPRAM 20 MG TABLET PO SCH (07:53)
[2020-12-15] MEDS: GABAPENTIN 300 MG CAPSULE PO SCH (07:53)
[2020-12-15] MEDS: traMADol 50 MG TABLET PO PRN (07:53)
[2020-12-15] MEDS: PANTOPRAZOLE 40 MG TABLET PO SCH (07:54)
[2020-12-15] MEDS ORDERED: PNEUMOCOCCAL 23-VAL P-SAC VAC 0.5 ML SYRINGE IM ONE (10:00)
[2020-12-20 15:02] LABS: M. Pneumoniae IGG 1.55
== END 2020-12-15 11:14 | disposition home or self-care (01) | DRG 682 ==
LOC: ED 20:55 → MEDSUR 12-13 12:57
PROVIDERS: ADMIT Internal Medicine; ATTEND Internal Medicine